=== PATIENT | male | born 1955 | race Caucasian/White ===

== ENCOUNTER 2018-06-25 23:16 | Emergency (ER) | payer SELFPAY ==
[2018-06-25 23:23] VITALS: TEMP 97.2; BMI 27.4
--- NOTE | 2018-06-25 23:56 | PDOC ---
Attending Attestation - HPI HPI: 06/26/18 00:34 The patient is a 62-year-old male with a past medical history significant for Hep C presents to the emergency department via EMS intoxicated. The patient reports he had some beer and vodka to drink tonight, and he is unsure who called EMS. The patient reports he is an everyday drinker, and he was drinking last night (06/24/2018), states he suffered a fall. The patient is unsure of the details, states he woke up with blood on his chin, denies following up. The patient reports he had been to detox 3 times in the past, non recently. The patient reports he had mild pain to the mid-abdominal region and chronic pain to the L. Knee. Allergies: NKDA - Physicial Exam PE: 06/26/18 00:53 GENERAL: intoxicated and alcohol on breath. HEAD: No signs of trauma EYES: PERRLA, EOMI, sclera anicteric, conjunctiva clear ENT: Auricles normal inspection, hearing grossly normal, nares patent, oropharynx clear without exudates. Moist mucosa FACE: +abrasion/scab under the chin. NECK: Normal ROM, supple, no lymphadenopathy, JVD, or masses LUNGS: Breath sounds equal, clear to auscultation bilaterally. No wheezes, and no crackles HEART: Regular rate and rhythm, normal S1 and S2, no murmurs, rubs or gallops ABDOMEN: +mild epigastric tenderness. Soft. No guarding, no rebound. No masses EXTREMITIES: Moving all extremities. No edema to the leg. Normal range of motion , no edema. No clubbing or cyanosis. No cords, erythema, or tenderness NEUROLOGICAL: Awake and alert, intoxicated. Slurred speech, follows commands and answers questions. SKIN: Warm, Dry, normal turgor, no rashes or lesions noted. - Medical Decision Making 06/26/18 00:34 Documentation prepared by Lea Sheldon, acting as medical case manager for Radha Hamilton DO. 06/26/18 01:36 DATE OF SERVICE: 2018-06-26 00:53:13 EXAM: HEAD CT WITHOUT CONTRAST FINDINGS: Status post remote bifrontal rolf hole placement. Mild to moderate cortical atrophy mild small vessel ischemic changes noted. Right temporal encephalomalacia may be due to prior surgery or old infarct.. The sulcal pattern is normal for the patient's age. There is no bleed, mass, extra-axial fluid collection or mass effect. An old nasal bridge fracture is noted. No skull fracture or skull lesion is identified. The visualized paranasal sinuses and mastoid air cells are clear. IMPRESSION: No evidence of acute pathology. THIS DOCUMENT HAS BEEN ELECTRONICALLY SIGNED Nicko Clark MD 06/26/2018 01:07 EST <Lea Sheldon - Last Filed: 06/26/18 01:36> - Resident Resident Name: Nina Newton - ED Attending Attestation I have performed the following: I have examined & evaluated the patient, The case was reviewed & discussed with the resident, I agree w/resident's findings & plan, Exceptions are as noted - Medical Decision Making 06/25/18 23:56 I, Dr. Radha Hamilton, DO, attest that this document has been prepared under my direction and personally reviewed by me in its entirety. I further attest, that it accurately reflects all work, treatment, procedures and medical decision -making performed by me. 06/26/18 00:47 a/p: 62yo male with etoh intox biba -abrasion to chin- states he fell yesterday while drinking -no neck pain -pt with smell of etoh on his breath -c/o epigastric abd pain -will send labs to eval for alcoholic pancreatitis, suspect more alcoholic gastritis -pt denies wanting detox or rehab for etoh -no focal neuro findings -will obtain head ct, labs -will give banana bag -will monitor and reassess <Radha Hamilton - Last Filed: 06/26/18 01:39> Heart Score/ECG Review - ECG Intrepretation Comment:: 06/26/18 01:39 sinus at 61, nl axis, nl interval, lvh, no acute st/t wave findings <Radha Hamilton - Last Filed: 06/26/18 01:39>
[2018-06-26] MEDS ORDERED: FOLIC ACID INJECTION - 1 MG, THIAMINE HCL 100 MG, MULTIVIT INJECTION ADULT 10 ML in SOD... IVPB ONE (00:46)
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
[2018-06-26 01:35] LABS: BASO % 0.6 % (0-2.0); EOS % 0.4 % (0-4.5); HEMATOCRIT 39.4 % (35.4-49); HEMOGLOBIN 13.7 GM/dL (11.7-16.9); LYMPH % 11.1 % (8-40); MCH 33.7 pg (25.7-33.7); MCHC 34.7 g/dl (32.0-35.9); MEAN CELL VOLUME 97.1 fl (80-96); MEAN PLT VOLUME 7.8 fl (7.5-11.1); MONO % 6.3 % (3.8-10.2); NEUT % 81.6 % (42.8-82.8); PLATELET COUNT 229 K/MM3 (134-434); RBC 4.05 M/mm3 (4.00-5.60); RDW 13.4 % (11.9-15.9); WHITE BLOOD COUNT 10.4 K/mm3 (4.0-10.0)
[2018-06-26] MEDS ORDERED: DIPHTH,PERTUSS(ACELL),TET 0.5 ML DISP.SYRIN IM ONE ×2 (01:35→01:48)
[2018-06-26 02:04] LABS: URINE APPEARANCE CLEAR; URINE BILIRUBIN NEGATIVE (<2.0 mg/dL); URINE COLOR LTYELLOW; URINE GLUCOSE (UA) NEGATIVE (NEGATIVE); URINE KETONE NEGATIVE (NEGATIVE); URINE LEUK ESTERASE NEGATIVE (NEGATIVE); URINE NITRITE NEGATIVE (NEGATIVE); URINE PROTEIN NEGATIVE (NEGATIVE)
[2018-06-26 02:06] LABS: URINE MUCUS RARE
[2018-06-26 02:07] LABS: ALK PHOS 86 U/L (45-117); ANION GAP 7 MMOL/L (8-16); BILIRUBIN,TOTAL 0.7 mg/dL (0.2-1); BLOOD UREA NITROGEN 12 mg/dL (7-18); CALCIUM 8.6 mg/dL (8.5-10.1); CHLORIDE 104 mmol/L (98-107); CO2 26 mmol/L (21-32); CREATININE 0.7 mg/dL (0.55-1.3); GLUCOSE,RANDOM 80 mg/dL (74-106); LIPASE 77 U/L (73-393); MAGNESIUM 2.6 mg/dL (1.8-2.4); POTASSIUM 4.4 mmol/L (3.5-5.1); SGOT/AST 35 U/L (15-37); SGPT/ALT 17 U/L (13-61); SODIUM 137 mmol/L (136-145); TOT PROT 7.1 g/dl (6.4-8.2)
[2018-06-26 06:22] VITALS: BP 97/59; PULSE 65
--- NOTE | 2018-06-26 10:54 | EKG ---
Test Reason : Blood Pressure : / mmHG Vent. Rate : 061 BPM Atrial Rate : 061 BPM P-R Int : 182 ms QRS Dur : 102 ms QT Int : 410 ms P-R-T Axes : 072 -28 037 degrees QTc Int : 412 ms NORMAL SINUS RHYTHM NON-SPECIFIC INTRA-VENTRICULAR CONDUCTION DELAY ABNORMAL ECG NO PREVIOUS ECGS AVAILABLE Confirmed by PROSPER GUADARRAMA MD ([id number]) on 06/26/2018 10:54:10 AM Referred By: Confirmed By:PROSPER GUADARRAMA MD
== END 2018-06-26 06:39 | disposition home or self-care (01) ==
LOC: JER 23:16
PROC: 3E0234Z Introduction of Serum, Toxoid and Vaccine into Muscle, Percutaneous Approach (ICD-10-PCS; principal; 2018-06-25)
PROC: 3E033GC Introduction of Other Therapeutic Substance into Peripheral Vein, Percutaneous Approach (ICD-10-PCS; 2018-06-25)
DX: F10.120 Alcohol abuse with intoxication, uncomplicated (principal); R10.13 Epigastric pain; M25.562 Pain in left knee; S00.81XA Abrasion of other part of head, initial encounter; S60.417A Abrasion of left little finger, initial encounter; W19.XXXA Unspecified fall, initial encounter; Z91.81 History of falling; Y93.89 Activity, other specified; Y92.488 Other paved roadways as the place of occurrence of the external cause; Y99.8 Other external cause status
CPT/HCPCS: 36415; 70450-TC; 80053; 80307; 81003; 81015; 83690; 83735; 85025; 85730; 90715; 93005; 93010; 99284-25; J7030